=== PATIENT | male | born 1995 | race African-American/Black ===

== ENCOUNTER 2016-11-11 01:39 | Emergency (ER) | payer BC, OTHER ==
[2016-11-11 01:46] VITALS: TEMP 36.7
[2016-11-11 02:10] VITALS: O2SAT 96
[2016-11-11 02:52] LABS: BLOOD UREA NITROGEN 9 mg/dl (7-18); CALCIUM 8.4 mg/dl (8.5-10.1); CARBON DIOXIDE 27 mmol/L (21-32); CHLORIDE 103 mmol/L (98-107); CREATININE 0.86 mg/dl (0.60-1.40); GLUCOSE 118 mg/dl (70-99); POTASSIUM 3.2 mmol/L (3.5-5.1); SODIUM 136 mmol/L (136-145)
--- NOTE | 2016-11-11 06:32 | EMERGENCY ROOM VISIT NOTE ---
History Report prepared by Luis: Maryan Guerra Under the Supervision of: Dr. Erica Loaiza D.O. First contact with patient: 01:42 Stated Complaint: ALCOHOL History of Present Illness The patient is a 21 year old male who presents to the Emergency Room with persistent alcohol intoxication starting [employer]. He presents to the ED by EMS. The patient was found in the second story of an apartment building with red vomit on him. He had beers in his pockets. The history is limited due to the patient' s unresponsiveness. Source of History: EMS History Limited By: AMS Onset: [employer] Position: other (global) Quality: other (alcohol intoxication) Timing: other (persistent) Review of Systems Unobtainable due to AMS. Past Medical & Surgical Unable to obtain from the patient has they were intoxicated. Family History Unobtainable due to AMS. Social History Alcohol Use: occasionally Occupation Status: [employer] student Current/Historical Medications Unable to Obtain Active Prescriptions or Reported Meds Physical Exam Vital Signs Date Time Temp Pulse Resp B/P (MAP) Pulse Ox O2 Delivery O2 Flow Rate FiO2 11/11/16 06:41 68 16 102/48 96 Room Air 11/11/16 05:53 81 16 94/42 98 Room Air 11/11/16 05:36 68 11/11/16 05:30 89 15 96 Room Air 11/11/16 05:00 67 12 95 Room Air 11/11/16 04:30 68 17 89 Room Air 11/11/16 04:00 80 15 96 Room Air 11/11/16 03:30 67 16 96 Room Air 11/11/16 03:00 86 14 98 Room Air 11/11/16 02:30 63 15 94 Room Air 11/11/16 02:10 96 Nasal Cannula 2.0 11/11/16 02:10 75 Room Air 11/11/16 01:50 117 11/11/16 01:46 95 Room Air 11/11/16 01:46 36.7 74 10 123/59 95 Room Air Physical Exam General: Unresponsive with a red substance on his face and neck. HEENT: Head - normocephalic and atraumatic Pupils are 3mm and sluggishly reactive to light. Extraocular eye muscles are intact, and sclera are anicteric , moderate scleral injection. Nose - moist nasal mucosa without discharge. Mouth - moist buccal mucosa. Oropharynx is nonerythematous and there is no tonsillar exudate or edema noted. Neck: Supple; no JVD, nuchal rigidity, cervical lymphadenopathy. Heart: Regular rate and rhythm. There is a normal S1 and S2 with no murmurs, clicks, or gallops appreciated. Lungs: Clear to auscultation bilaterally with no wheezes, rales, or rhonchi. Abdomen: Soft, completely nontender, nondistended, with good bowel sounds. There are no palpable pulsatile masses or hepatosplenomegaly. There is no guarding, rigidity, or rebound noted. Extremities: No evidence of cyanosis, clubbing, or edema. There are easily palpable peripheral pulses. Skin: warm and dry with good turgor and no rashes. Medical Decision & Procedures Laboratory Results 11/11/16 01:50 Test 11/11/16 01:50 Anion Gap 6.0 mmol/L (3-11) Estimated GFR () 144.7 Estimated GFR (Non- 124.8 BUN/Creatinine Ratio 11.0 (10-20) Calcium Level 8.4 mg/dl (8.5-10.1) Ethyl Alcohol mg/dL 237.0 mg/dl (0-3) Laboratory results per my review. ED Course 0144: The patient was evaluated in room A4B. A complete history and physical examination were performed. Nursing notes and previous electronic medical records were reviewed. Labs are drawn as above. The patient was observed on the air sampling and monitoring and pulse oximeter. He was placed in the prone position to avoid aspiration. 0304: I reevaluated the patient. He is sound asleep. His vitals are stable. 0552: I reevaluated the patient. He was up to the bathroom. 0617: I reevaluated the patient. He is sound asleep and stable. 0700: The patient woke up briefly. I warned him of the hazards of such excessive alcohol use. He went back to sleep. He will be discharged home when he is more awake and sober. Medical Decision The patient is a 21 year old male who presents to the ED with alcohol intoxication. Differential diagnosis includes alcohol overdose, drug intoxication, head injury, hypoglycemia. Labs: alcohol 237, potassium 3.2, normal renal function, glucose 118. The patient was brought to the emergency department after consuming too much alcohol and vomiting. He was observed here in the emergency department. He had no outward signs of trauma. He was cooperative on exam. He remained hemodynamically stable. The patient continues to sober up will be discharged once he is sober. Impression Primary Impression: Alcohol overdose Scribe Attestation The scribe's documentation has been prepared under my direction and personally reviewed by me in its entirety. I confirm that the note above accurately reflects all work, treatment, procedures, and medical decision making performed by me. Departure Information Dispostion Home / Self-Care Prescriptions Unable to Obtain Active Prescriptions or Reported Meds Referrals No Doctor, Assigned (PCP) Forms HOME CARE DOCUMENTATION FORM, IMPORTANT VISIT INFORMATION Patient Instructions ED Overdose Alcohol, [facility]: [employer] Students and Alcohol Related Visits, My [facility] Additional Instructions Rest. Take plenty of clear liquids and a bland diet Avoid such excessive alcohol use in the future. Take tylenol for headache Problem Qualifiers Primary Impression: Alcohol overdose Encounter type: initial encounter Injury intent: accidental or unintentional Qualified Codes: T51.91XA - Toxic effect of unspecified alcohol , accidental (unintentional), initial encounter
[2016-11-11 09:39] VITALS: BP 108/59; PULSE 74; O2SAT 98
== END 2016-11-11 09:45 | disposition home or self-care (01) ==
LOC: C.EDA 01:40
DX: T51.91XA Toxic effect of unspecified alcohol, accidental (unintentional), initial encounter (principal); Y90.7 Blood alcohol level of 200-239 mg/100 ml